=== PATIENT | male | born 1980 | race Caucasian/White ===

== ENCOUNTER 2018-05-21 19:17 | Emergency (ER) | payer OTHER, SELFPAY ==
[2018-05-21] MEDS ORDERED: Ketorolac Tromethamine 60 MG/2 ML VIAL ONE (19:55)
--- NOTE | 2018-05-21 22:28 | RAD ---
RIGHT SHOULDER THREE VIEWS: 05/21/18 No fracture, dislocation, or AC joint widening was seen. There are no periarticular calcifications. T he visible adjacent ribs appear normal as does the scapula. IMPRESSION: No significant findings. POS: HOME
== END 2018-05-21 20:02 | disposition home or self-care (01) ==
LOC: BURERS 19:17
DX: S49.91XA Unspecified injury of right shoulder and upper arm, initial encounter (principal); Z86.73 Personal history of transient ischemic attack (TIA), and cerebral infarction without residual deficits; F41.9 Anxiety disorder, unspecified; F31.9 Bipolar disorder, unspecified; F43.10 Post-traumatic stress disorder, unspecified; F20.9 Schizophrenia, unspecified; F17.210 Nicotine dependence, cigarettes, uncomplicated; X50.9XXA Other and unspecified overexertion or strenuous movements or postures, initial encounter
CPT/HCPCS: 96372; J1885

== ENCOUNTER 2018-08-26 14:47 | Emergency (ER) | payer OTHER ==
[2018-08-26] MEDS ORDERED: Fentanyl 100 MCG/2 ML VIAL ONE ×2 (15:08→16:37)
--- NOTE | 2018-08-26 15:17 | RAD ---
Chest AP view INDICATION: Chest pain COMPARISON: July 05, 2016 FINDINGS: Lungs:The lungs are clear Cardiac silhouette pulmonary vasculature:The cardiomediastinal silhouette appears within normal limit s. Pleural spaces:No pleural effusion or pneumothorax is demonstrated. Upper abdomen:No abnormality seen. Osseous structures: No acute osseous abnormality. Additional findings:None. IMPRESSION: No acute cardiopulmonary abnormality.
[2018-08-26 15:20] LABS: #Basophils 0.1 thou/uL (0.0-0.2); #Eosinphils 0.3 thou/uL (0.0-0.7); #Lymphocytes 1.5 thou/uL (1.20-3.40); #Monocytes 0.5 thou/uL (0.11-0.59); #Neutrophils 4.2 thou/uL (1.40-6.50); %Basophils 0.8 % (0.0-1.0); %Eosinophils 4.3 % (0.0-10.0); %Lymphocytes 23.2 % (21.0-51.0); %Monocytes 6.9 % (0.0-10.0); %Neutrophils 64.8 % (42.0-75.0); Hemoglobin 13.5 g/dL (14.0-18.0); Mean Corpuscular HGB CONC 31.7 g/dL (32.0-36.0); Mean Corpuscular Hemoglobin 28.6 pg (27.0-31.0); Mean Corpuscular Volume 90.1 fL (78.0-98.0); Mean Platelet Volume 6.4 fL (7.4-10.4); Platelet Count 265 thou/uL (130-400); RBC Distribution Width 13.1 % (11.5-14.5); Red Blood Cell (RBC) Count 4.72 mill/uL (4.70-6.10); White Blood Cell (WBC) Count 6.5 thou/uL (4.8-10.8)
[2018-08-26 15:32] LABS: ALT (SGPT) 24 U/L (8-55); AST (SGOT) 16 U/L (5-34); Albumin 4.5 g/dL (3.5-5.0); Alkaline Phosphatase 92 U/L (40-150); Anion Gap 13 mmol/L (10-20); BUN (Urea Nitrogen) 16 mg/dL (8.9-20.6); Bilirubin, Total 0.4 mg/dL (0.2-1.2); Calc. Creatinine Clearance 0 mL/min (70-130); Calcium 9.4 mg/dL (7.8-10.44); Carbon Dioxide 26 mmol/L (22-29); Chloride 106 mmol/L (98-107); Estimated GFR-MDRD 61; Globulin 2.8 g/dL (2.4-3.5); Glucose 85 mg/dL (70-105); Lipase 22 U/L (8-78); Potassium 3.7 mmol/L (3.5-5.1); Protein, Total 7.3 g/dL (6.0-8.3); Sodium 141 mmol/L (136-145)
--- NOTE | 2018-08-26 16:05 | CT ---
CTA of the chest and abdomen utilizing an aortic dissection protocol and 3-D reformatted imaging INDICATION: History of Marfan syndrome and ascending aortic repair; extreme chest pain COMPARISON: None FINDINGS: Aorta: There is a large hypodense excluded aneurysmal sac involving the ascending aorta measuring 6.6 x 5.4 cm. There are punctate regions of nodular density seen along the superior margin of the aneurysmal sac. This may reflect artifact from the patient's prior surgery or possibly contrast extra vasation from the graft leak within the aneurysmal sac. The aortic arch, descending thoracic aorta and abdominal aorta are of normal caliber and are patent. The celiac, SMA, renal arteries and JEREMI are patent. Both common iliac and iliac bifurcations are patent. Central pulmonary artery: No central pulmonary embolus demonstrated. Additional thorax findings: No focal consolidation, pleural effusion or pneumothorax is evident. Additional abdominal findings: There are tiny hypodensities within the liver suspicious for cysts. Th e adrenal glands, pancreas, kidneys, spleen and retroperitoneum appear within normal limits. The unopacified large and small bowel are within normal limits. Osseous structures: No acute fracture or subluxation demonstrated. Healed midline sternotomy changes. IMPRESSION: 1. Large suspected of excluded aneurysmal sac involving the ascending aorta measuring 6.6 x 5.4 cm. T here are punctate regions of nodular contrast density seen along the superior margin of the aneurysmal sac which may be artifactual in nature related to the patient's surgery; however, contrast extravasation from the graft leak into the aneurysmal sac is not excluded. Dr. Desai was contacted concerning the findings at 3:55 PM on August 26, 2018. Dr. Desai reported that the patient is having ext kulwant chest pain. Cardiothoracic surgical referral is recommended. 2. Hepatic cysts
[2018-08-26] MEDS ORDERED: Ondansetron PF 4 MG/2 ML Vial ONE (16:37)
== END 2018-08-26 16:48 | disposition short-term general hospital (02) ==
LOC: BURERS 14:47
DX: I71.1 Thoracic aortic aneurysm, ruptured (principal); F41.9 Anxiety disorder, unspecified; F31.9 Bipolar disorder, unspecified; F20.9 Schizophrenia, unspecified; F43.10 Post-traumatic stress disorder, unspecified; F17.210 Nicotine dependence, cigarettes, uncomplicated; Z79.899 Other long term (current) drug therapy; Z79.82 Long term (current) use of aspirin
CPT/HCPCS: 36415; 71045; 71275; 80053; 82553; 83690; 84484; 85025; 85379; 93005; 94760; 96374; 96375; 96376; J2405; J2997; J3010

== ENCOUNTER 2019-10-08 18:18 | Emergency (ER) | payer OTHER ==
--- NOTE | 2019-10-08 19:47 | RAD ---
RIGHT ANKLE THREE VIEWS: Date: 10-08-2019 FINDINGS: Three views show no fracture, dislocation, or joint space abnormality. The bones appear normal. IMPRESSION: No acute finding. POS: HOME
== END 2019-10-08 19:02 | disposition home or self-care (01) ==
LOC: BURERS 18:18
DX: S93.401A Sprain of unspecified ligament of right ankle, initial encounter (principal); F41.9 Anxiety disorder, unspecified; F31.9 Bipolar disorder, unspecified; F17.210 Nicotine dependence, cigarettes, uncomplicated; Z79.82 Long term (current) use of aspirin; Z79.899 Other long term (current) drug therapy; X50.9XXA Other and unspecified overexertion or strenuous movements or postures, initial encounter

== ENCOUNTER 2020-04-07 09:39 | Emergency (ER) | payer OTHER ==
[2020-04-07] MEDS ORDERED: Ibuprofen 800 MG TAB ONE (09:52)
[2020-04-07] MEDS ORDERED: Acetaminophen 500 MG TAB ONE (09:52)
--- NOTE | 2020-04-07 10:34 | RAD ---
RIGHT THUMB3 VIEWS: DATE: 04/07/2020. FINDINGS: No fracture was seen. The joints all appear normal. On the oblique view only there is a tiny sofia of bone at the base of the distal phalanx. Its somewhat smooth edges suggest that it is not new, and could be either an old injury or accessory ossicle. IMPRESSION: No major fracture seen. POS: HOME
== END 2020-04-07 10:16 | disposition home or self-care (01) ==
LOC: BURERS 09:39
DX: S67.01XA Crushing injury of right thumb, initial encounter (principal); W22.8XXA Striking against or struck by other objects, initial encounter; F17.210 Nicotine dependence, cigarettes, uncomplicated

== ENCOUNTER 2020-06-21 17:39 | Emergency (ER) | payer OTHER | END 2020-06-21 18:30 | disposition home or self-care (01) | LOC: BURERS 17:39 | DX: S00.81XA Abrasion of other part of head, initial encounter (principal); L76.34 Postprocedural seroma of skin and subcutaneous tissue following other procedure; I10 Essential (primary) hypertension; Z86.73 Personal history of transient ischemic attack (TIA), and cerebral infarction without residual deficits; Z79.82 Long term (current) use of aspirin; F17.210 Nicotine dependence, cigarettes, uncomplicated; W18.30XA Fall on same level, unspecified, initial encounter | CPT/HCPCS: 99283 ==

== ENCOUNTER 2020-11-15 20:03 | Emergency (ER) | payer OTHER | END 2020-11-15 21:34 | disposition home or self-care (01) | LOC: BURERS 20:03 | DX: S93.401A Sprain of unspecified ligament of right ankle, initial encounter (principal); V29.9XXA Motorcycle rider (driver) (passenger) injured in unspecified traffic accident, initial encounter; I10 Essential (primary) hypertension; F17.210 Nicotine dependence, cigarettes, uncomplicated ==

== ENCOUNTER 2021-06-07 17:59 | Emergency (ER) | payer OTHER | END 2021-06-07 18:34 | disposition home or self-care (01) | LOC: BURERS 17:59 | DX: S01.01XA Laceration without foreign body of scalp, initial encounter (principal); I10 Essential (primary) hypertension; I71.9 Aortic aneurysm of unspecified site, without rupture; W22.8XXA Striking against or struck by other objects, initial encounter; Z86.73 Personal history of transient ischemic attack (TIA), and cerebral infarction without residual deficits; Z87.891 Personal history of nicotine dependence; Z79.82 Long term (current) use of aspirin; Z79.899 Other long term (current) drug therapy | CPT/HCPCS: 12001; 70450 ==

== ENCOUNTER 2022-02-04 18:13 | Emergency (ER) | payer OTHER ==
[~2022-02-04 18:13] MED LIST: Iopamidol 370 76% 100 ML VIAL ONE
[2022-02-04 18:38] LABS: #Basophils 0.1 thou/uL (0.0-0.2); #Eosinphils 0.3 thou/uL (0.0-0.7); #Lymphocytes 1.9 thou/uL (1.20-3.40); #Monocytes 0.6 thou/uL (0.11-0.59); %Basophils 0.9 % (0.0-1.0); %Eosinophils 5.3 % (0.0-10.0); %Lymphocytes 32.4 % (21.0-51.0); %Neutrophils 51.4 % (42.0-75.0); Hemoglobin 12.4 g/dL (14.0-18.0); Mean Corpuscular HGB CONC 30.6 g/dL (32.0-36.0); Mean Corpuscular Hemoglobin 25.6 pg (27.0-31.0); Mean Corpuscular Volume 83.5 fl (78.0-98.0); Mean Platelet Volume 7.1 fL (7.4-10.4); Platelet Count 345 thou/uL (130-400); RBC Distribution Width 15.4 % (11.5-14.5); Red Blood Cell (RBC) Count 4.86 mill/uL (4.70-6.10); White Blood Cell (WBC) Count 5.9 thou/uL (4.8-10.8)
[2022-02-04 18:48] LABS: PTT 30.9 sec (22.9-36.1); Prothrombin Time 13.8 sec (12.0-14.7)
[2022-02-04 18:56] LABS: ALT (SGPT) 22 U/L (8-55); AST (SGOT) 21 U/L (5-34); Albumin 4.3 g/dL (3.5-5.0); Alkaline Phosphatase 95 U/L (40-110); Anion Gap 13 mmol/L (10-20); BUN (Urea Nitrogen) 13 mg/dL (8.9-20.6); Bilirubin, Total 0.4 mg/dL (0.2-1.2); Calc. Creatinine Clearance 0 mL/min (70-130); Calcium 9.1 mg/dL (7.8-10.44); Carbon Dioxide 23 mmol/L (22-29); Chloride 107 mmol/L (98-107); Estimated GFR 87; Glucose 78 mg/dL (70-105); Potassium 4.1 mmol/L (3.5-5.1); Protein, Total 7.3 g/dL (6.0-8.3); Sodium 139 mmol/L (136-145)
[2022-02-04 19:37] LABS: Bilirubin Negative (Negative); Blood, Urine Trace (Negative); Clarity Clear (Clear); Glucose, Urine (Dipstick) Negative (Negative); Ketone, Urine Negative (Negative); Leukocyte Negative (Negative); Nitrite Negative (Negative); Protein, Urine (Dipstick) Negative (Neg-Trace); Specific Gravity, Urine 1.028 (1.002-1.036); Urobilinogen 0.2 mg/dL (Less than 2); pH, Urine 5.5 (5.0-9.0)
[2022-02-04 19:44] LABS: RBC/HPF 0-3 HPF (0-3); Squamous Epithelial 0-3 HPF (0-3); WBC/HPF 0-3 HPF (0-3)
[2022-02-04 19:45] LABS: Bacteria/HPF 1+ HPF (None Seen)
[2022-02-04 19:46] LABS: Amphetamine Not Detected (NotDetected); Barbiturates Screen Not Detected (NotDetected); Benzodiazepine Screen Not Detected (NotDetected); Cocaine Metabolite Screen Not Detected (NotDetected); Medtox Control Line Valid? VALID (VALID); Methadone Not Detected (NotDetected); Methamphetamine Not Detected (NotDetected); Opiate Screen Not Detected (NotDetected); Oxycodone Screen Not Detected (NotDetected); Phencyclidine (PCP) Not Detected (NotDetected); THC/Cannabinoid Screen Not Detected (NotDetected); Tricyclic Screen Not Detected (NotDetected)
[2022-02-04] MEDS ORDERED: Ondansetron PF 4 MG/2 ML Vial ONE (20:17)
[2022-02-04] MEDS ORDERED: Fentanyl 100 MCG/2 ML VIAL ONE (20:17)
== END 2022-02-04 20:28 | disposition short-term general hospital (02) ==
LOC: BURERS 18:13
DX: I71.21 Aneurysm of the ascending aorta, without rupture (principal); I71.010 Dissection of ascending aorta; I10 Essential (primary) hypertension; I25.2 Old myocardial infarction; Z86.73 Personal history of transient ischemic attack (TIA), and cerebral infarction without residual deficits; Z87.891 Personal history of nicotine dependence
CPT/HCPCS: 36416; 70450; 71275; 74174; 80053; 80306; 81003; 81015; 84484; 85025; 85610; 85730; 93005; 94760; 96374; 96375; J2405; J3010; Q9967

== ENCOUNTER 2023-08-09 14:59 | Emergency (ER) | payer OTHER ==
[2023-08-09] MEDS ORDERED: predniSONE 20 MG TAB ONE (15:45)
== END 2023-08-09 15:50 | disposition home or self-care (01) ==
LOC: BURERS 14:59
DX: J44.1 Chronic obstructive pulmonary disease with (acute) exacerbation (principal); I10 Essential (primary) hypertension; I25.2 Old myocardial infarction; F17.210 Nicotine dependence, cigarettes, uncomplicated; Z86.73 Personal history of transient ischemic attack (TIA), and cerebral infarction without residual deficits
CPT/HCPCS: 99283; J7512

== ENCOUNTER 2023-08-16 11:55 | Emergency (ER) | payer OTHER | END 2023-08-16 13:43 | disposition home or self-care (01) | LOC: BURERS 11:55 | DX: S60.211A Contusion of right wrist, initial encounter (principal); I25.2 Old myocardial infarction; I10 Essential (primary) hypertension; F17.210 Nicotine dependence, cigarettes, uncomplicated; W01.111A Fall on same level from slipping, tripping and stumbling with subsequent striking against power tool or machine, initial encounter; Z86.73 Personal history of transient ischemic attack (TIA), and cerebral infarction without residual deficits ==

== ENCOUNTER 2023-12-17 12:30 | Emergency (ER) | payer OTHER ==
[2023-12-17] MEDS ORDERED: Acetaminophen/Codeine 30-300mg Tablet ONE (12:59)
== END 2023-12-17 13:35 | disposition home or self-care (01) ==
LOC: BURERS 12:30
DX: S70.02XA Contusion of left hip, initial encounter (principal); M19.90 Unspecified osteoarthritis, unspecified site; F17.210 Nicotine dependence, cigarettes, uncomplicated; I10 Essential (primary) hypertension; I25.2 Old myocardial infarction; W18.30XA Fall on same level, unspecified, initial encounter; Y93.62 Activity, american flag or touch football; Z86.73 Personal history of transient ischemic attack (TIA), and cerebral infarction without residual deficits
CPT/HCPCS: 72170; 99283

== ENCOUNTER 2024-11-17 09:24 | Emergency (ER) | payer OTHER ==
[2024-11-17] MEDS ORDERED: Ibuprofen 200 MG TAB ONE (09:56)
[2024-11-17] MEDS ORDERED: Acetaminophen 325 MG TAB ONE (09:56)
== END 2024-11-17 10:44 | disposition home or self-care (01) ==
LOC: BURERS 09:24
DX: S60.222A Contusion of left hand, initial encounter (principal); I10 Essential (primary) hypertension; I25.2 Old myocardial infarction; F17.210 Nicotine dependence, cigarettes, uncomplicated; W23.0XXA Caught, crushed, jammed, or pinched between moving objects, initial encounter; Z86.73 Personal history of transient ischemic attack (TIA), and cerebral infarction without residual deficits
CPT/HCPCS: 99283

== ENCOUNTER 2024-11-19 10:15 | Emergency (ER) | payer OTHER | END 2024-11-19 10:45 | disposition home or self-care (01) | LOC: BURERS 10:15 | DX: B02.9 Zoster without complications (principal); I10 Essential (primary) hypertension; E78.5 Hyperlipidemia, unspecified; I25.2 Old myocardial infarction; F17.210 Nicotine dependence, cigarettes, uncomplicated; Z86.73 Personal history of transient ischemic attack (TIA), and cerebral infarction without residual deficits; Z79.899 Other long term (current) drug therapy; Z79.82 Long term (current) use of aspirin | CPT/HCPCS: 99282 ==